=== PATIENT | male | born 1990 | race Caucasian/White ===

== ENCOUNTER 2022-01-22 09:45 | Emergency (ER) | payer MEDICAID ==
[~2022-01-22] VITALS: Ht 185.4 cm; Wt 93.0 kg
[2022-01-22 10:33] VITALS: BP 136/86
== END 2022-01-22 11:07 | disposition home or self-care (01) ==
LOC: ER 09:45
DX: S93.402A Sprain of unspecified ligament of left ankle, initial encounter (principal); S93.602A Unspecified sprain of left foot, initial encounter; X50.1XXA Overexertion from prolonged static or awkward postures, initial encounter; Y93.89 Activity, other specified; Y92.89 Other specified places as the place of occurrence of the external cause; Y99.8 Other external cause status
CPT/HCPCS: 73610; 73630

== ENCOUNTER 2022-02-24 13:11 | Emergency (ER) | payer MEDICAID ==
[~2022-02-24] VITALS: Ht 185.4 cm; Wt 88.5 kg
[2022-02-24] MEDS ORDERED: TETANUS-DIPTH-ACEL PERTUSSIS 0.5ML SYR Tdap IM ONE (13:45)
[2022-02-24 13:48] VITALS: BP 143/89
[2022-02-24] MEDS ORDERED: ACET-1158 PO (15:33)
[2022-02-24] MEDS ORDERED: CEPH-509 PO (15:33)
== END 2022-02-24 15:54 | disposition home or self-care (01) ==
LOC: ER 13:11
DX: S61.512A Laceration without foreign body of left wrist, initial encounter (principal); I10 Essential (primary) hypertension; W25.XXXA Contact with sharp glass, initial encounter; Y93.89 Activity, other specified; Y92.89 Other specified places as the place of occurrence of the external cause; Y99.8 Other external cause status
CPT/HCPCS: 12001; 73090; 90471; 90715; 99283; J2001